=== PATIENT | male | born 1965 | race Two or more races ===

== ENCOUNTER 2021-04-24 08:41 | Emergency (ER) | payer MEDICAID ==
[~2021-04-24] VITALS: Ht 167.6 cm; Wt 65.9 kg
[2021-04-24] MEDS ORDERED: ValACYclovir HCL 500 MG TABLET PO ONE (09:15)
[2021-04-24] MEDS ORDERED: PredniSONE 20 MG TABLET PO ONE (09:15)
[2021-04-24 09:37] LABS: BASOPHILS % (AUTO) 0.3 % (0.0-2.0); EOSINOPHILS % (AUTO) 0.4 % (1.0-6.0); HEMATOCRIT 45.2 % (41-53); HEMOGLOBIN 15.3 g/dL (13.5-17.5); LYMPHOCYTES # (AUTO) 1.8 K/uL (1.0-4.8); LYMPHOCYTES % (AUTO) 31.9 % (22.0-44.0); MEAN CORPUSCULAR HEMOGLOBIN 30.4 pg (26.0-34.0); MEAN CORPUSCULAR HGB CONC 33.9 G/dL (31.0-37.0); MEAN CORPUSCULAR VOLUME 90 fL (80-100); MONOCYTES # (AUTO) 0.4 K/uL (0.1-1.0); MONOCYTES % (AUTO) 6.8 % (2.0-9.0); NEUTROPHILS # (AUTO) 3.5 K/uL (1.8-7.7); NEUTROPHILS % (AUTO) 60.6 % (40.0-70.0); RED BLOOD CELL COUNT(AUTO) 5.04 MIL/uL (4.50-5.90); RED CELL DISTRIBUTION WIDTH 13.3 % (11.5-14.5)
[2021-04-24 09:40] LABS: ANION GAP 10 mmol/L (8-16); CALCIUM, TOTAL 8.6 mg/dL (8.8-10.5); CARBON DIOXIDE 28 mmol/L (22-29); CHLORIDE 104 mmol/L (98-107); CREATININE 0.98 mg/dL (0.60-1.30); GLOMERULAR FILTR. RATE CALC > 60 mL/min (>60); GLUCOSE,RANDOM 94 mg/dL (70-110); POTASSIUM 4.2 mmol/L (3.5-5.1); SODIUM SERUM 142 mmol/L (136-145); UREA NITROGEN, BLOOD 18 mg/dL (7-18)
[2021-04-24 09:47] LABS: ALANINE AMINOTRANSFERASE 25 U/L (12-78); ALBUMIN 3.8 g/dL (3.4-5.0); ALKALINE PHOSPHATASE 87 U/L (46-116); ASPARTATE AMINOTRANSFERASE 19 U/L (15-37); BILIRUBIN,TOTAL 0.6 mg/dL (0.1-1.0); TOTAL PROTEIN, SERUM 7.7 g/dL (6.4-8.2)
[2021-04-24 09:57] LABS: PLATELET COUNT (AUTO) 152 K/uL (150-450)
[2021-04-24 10:37] VITALS: BP 106/78
== END 2021-04-24 10:44 | disposition home or self-care (01) ==
LOC: EMS 08:43
DX: G51.0 Bell's palsy (principal); F41.8 Other specified anxiety disorders
CPT/HCPCS: 36415; 80053; 85025; 93005; 99284; J7512

== ENCOUNTER 2021-05-03 11:16 | Emergency (ER) | payer MEDICAID ==
[~2021-05-03] VITALS: Ht 170.2 cm; Wt 75.0 kg
[2021-05-03 13:20] VITALS: BP 122/75
== END 2021-05-03 13:46 | disposition home or self-care (01) ==
LOC: EMS 11:19
DX: G51.0 Bell's palsy (principal); Z76.0 Encounter for issue of repeat prescription
CPT/HCPCS: 99281; Z7502